=== PATIENT | male | born 1955 | race Caucasian/White ===

== ENCOUNTER 2021-01-08 00:42 | Inpatient (IN) ==
[2021-01-08] MEDS ORDERED: CLINDAMYCIN INJ 600 MG/50 ML PREMIX IV STA (00:58)
[2021-01-08] MEDS ORDERED: DEXTROSE 50% 25 GM/50 ML SYRINGE IV STA (00:58)
[2021-01-08] MEDS ORDERED: DIPH/TET/ACEL PERT BOOSTER VACCINE 0.5 ML VIAL IM ONE (00:58)
[2021-01-08] MEDS ORDERED: SODIUM CHLORIDE 0.9% 500 ML IV STA (00:58)
[2021-01-08 01:14] LABS: Basophils % 0.1 % (0.0-0.8); Hematocrit 42.3 VOL% (42.0-52.0); Hemoglobin 14.5 GM/DL (14.0-18.0); Immature Granulocytes % 0.8 %; Immature Granulocytes Absolute 0.21 #; Lymphocytes # 0.9 10*3/uL (1.4-4.0); Lymphocytes % 3.4 % (21.2-54.2); Mean Corpuscular HGB Conc 34.3 GM/DL (32-36); Mean Corpuscular Volume 84.8 FL (87-102); Mean Platelet Volume 10.3 FL (9.6-12.0); Monocytes % 7.8 % (1.7-12.7); Neutrophils % 87.9 % (38.7-73.9); Platelet Count 311 T/CUMM (130-400); Red Blood Count 4.99 MC/CUMM (3.8-5.5); Red Cell Distribution Width 14.3 % (9.3-17.3); White Blood Count 27.6 T/CUMM (4-12)
[2021-01-08] MEDS ORDERED: PANTOPRAZOLE 40 MG VIAL IV STA (01:21)
[2021-01-08 01:38] LABS: Acetaminophen < 2.0 UG/ML (10-30); Salicylate < 2.8 MG/DL (2.8-20)
[2021-01-08 01:47] LABS: Lactic Acid 2.8 MMOL/L (0.4-2.0)
[2021-01-08] MEDS ORDERED: SODIUM CHLORIDE 0.9% 1,000 ML IV STA (01:48)
[2021-01-08 01:57] LABS: Band Neutrophils 1 % (0-10); Lymphocytes 4 % (20-55); Segmented Neutrophils 88 % (50-85); Total Cells Counted 100
[2021-01-08 01:58] LABS: Platelet Estimate Normal; Reactive Lymphocytes Few
[2021-01-08 02:01] LABS: Alanine Aminotransferase 72 U/L (16-61); Alkaline Phosphatase 52 U/L (45-117); Aspartate Amino Transferase 199 U/L (0-37); Blood Urea Nitrogen 92 MG/DL (7-18); CKMB % 0.4 %; Calcium 8.5 MG/DL (8.5-10.1); Carbon Dioxide 17 MMOL/L (21-32); Estimated Glom Filtration Rate 10 ML/MIN; Glucose 161 MG/DL (74-106); Osmolality,Calculated 311.3 MOS/KG (273-304); Potassium 3.1 MMOL/L (3.5-5.1); Sodium 141 MMOL/L (136-145); Total Protein 6.7 G/DL (6.4-8.2)
[2021-01-08 02:02] LABS: ABG Base Excess -8.1 MMOL/L (-2.5-2.5); ABG HCO3 18.1 MMOL/L (20-26); ABG Oxygen Saturation 99.6 % (95-100); ABG PCO2 36.8 MM HG (35-48); ABG PH 7.295 (7.35-7.45); ABG TCO2 15.6 MMOL/L (23-27)
[2021-01-08] MEDS ORDERED: hydrALAZINE 20 MG/1 ML VIAL ONE (02:12)
[2021-01-08] MEDS ORDERED: ETOMIDATE 20 MG/10 ML VIAL IV ONE (02:34)
[2021-01-08] MEDS ORDERED: VECURONIUM 10 MG VIAL IV ONE (02:35)
[2021-01-08 02:52] LABS: Bilirubin,Urine Negative (Negative); Blood, Urine Large mg/dL (Negative); Glucose,Urine (UA) Negative (Negative); Granular Casts,Urine 4 /LPF (0-1); Hyaline Casts,Urine 7 /LPF (0-3); Ketones,Urine Negative (Negative); Mucus,Urine Occasional /LPF (Occasional); Nitrite,Urine Negative (Negative); Protein,Urine 100 MG/DL; RBC,Urine 16 /HPF (0-4); Squamous Epithelial Cell,Urine Occasional /HPF (0-10); Urine Appearance Slightly Hazy (Clear); Urine Color Amber (Yellow); Urine Specific Gravity 1.016 (1.001-1.035); Urine Urobilinogen < 2.0 EU/DL (0.2-1.0)
[2021-01-08 02:57] LABS: Barbiturates Screen,Urine Negative (Negative); Benzodiazepines Screen,Urine Negative (Negative); Cannabinoid Screen,Urine Negative (Negative); Opiate Screen,Urine Negative (Negative); Phencyclidine Screen,Urine Negative (Negative)
[2021-01-08] MEDS ORDERED: MIDAZOLAM 10 MG/2 ML VIAL ONE (03:08)
[2021-01-08] MEDS ORDERED: SODIUM CHLORIDE 0.9% 2,000 ML IV ONE (03:25)
[2021-01-08] MEDS ORDERED: ALBUTEROL 2.5 MG/3 ML NEB RESP TX PRN (03:28)
[2021-01-08] MEDS ORDERED: ONDANSETRON 4 MG/2 ML VIAL IV PRN (03:30)
[2021-01-08] MEDS ORDERED: POTASSIUM CHLORIDE RIDER 10 MEQ/100 ML PREMIX IV PRN (04:03)
[2021-01-08] MEDS ORDERED: MAGNESIUM SULF RIDER 4 GM/100 ML PREMIX IV PRN (04:03)
[2021-01-08] MEDS ORDERED: MAGNESIUM SULF RIDER 2 GM/50 ML PREMIX IV PRN (04:03)
[2021-01-08] MEDS: MORPHINE 2 MG/1 ML SYRINGE IV PRN (05:13)
[2021-01-08] MEDS: POTASSIUM CHLORIDE RIDER 20 MEQ/100 ML PREMIX IV PRN ×2 (05:30→06:05)
[2021-01-08] MEDS ORDERED: INFLUENZA VIRUS VACCINE 0.5 ML SYRINGE IM ONE (05:38)
[2021-01-08 05:43] LABS: Basophils % 0.1 % (0.0-0.8); Hemoglobin 12.2 GM/DL (14.0-18.0); Immature Granulocytes % 0.7 %; Lymphocytes # 0.9 10*3/uL (1.4-4.0); Lymphocytes % 3.4 % (21.2-54.2); Mean Corpuscular HGB Conc 34.9 GM/DL (32-36); Mean Corpuscular Volume 85.2 FL (87-102); Mean Platelet Volume 10.3 FL (9.6-12.0); Monocytes % 8.3 % (1.7-12.7); Neutrophils % 87.5 % (38.7-73.9); Platelet Count 256 T/CUMM (130-400); Red Blood Count 4.11 MC/CUMM (3.8-5.5); Red Cell Distribution Width 14.4 % (9.3-17.3); White Blood Count 27.3 T/CUMM (4-12)
[2021-01-08] MEDS ORDERED: MIDAZOLAM 100 MG in SODIUM CHLORIDE 0.9% 80 ML IV PRN (05:45)
[2021-01-08 05:52] LABS: ABG Base Excess -9.3 MMOL/L (-2.5-2.5); ABG HCO3 17.1 MMOL/L (20-26); ABG Oxygen Saturation 99.5 % (95-100); ABG PCO2 26.1 MM HG (35-48); ABG PH 7.361 (7.35-7.45); ABG TCO2 13.1 MMOL/L (23-27)
[2021-01-08] MEDS ORDERED: SODIUM CHLORIDE 0.9% 1,000 ML IV SCH (06:00)
[2021-01-08 06:08] LABS: Band Neutrophils 1 % (0-10); Hypochromasia Slight; Lymphocytes 1 % (20-55); Microcytosis 1+; Segmented Neutrophils 88 % (50-85); Total Cells Counted 100
[2021-01-08 06:09] LABS: Platelet Estimate Normal
[2021-01-08 06:27] LABS: Albumin 2.5 G/DL (3.4-5.0); Bilirubin,Total 1.4 MG/DL (0.20-1.00); Calcium 7.2 MG/DL (8.5-10.1); Osmolality,Calculated 315.8 MOS/KG (273-304); Thyroid Stimulating Hormone 0.086 uIU/ml (0.358-3.74); Total Protein 5.2 G/DL (6.4-8.2)
[2021-01-08] MEDS ORDERED: SODIUM BICARB INJ 100 MEQ in DEXTROSE 5% 1,000 ML IV SCH (07:00)
[2021-01-08] MEDS: PANTOPRAZOLE 40 MG VIAL IV SCH ×2 (09:05→21:02)
[2021-01-08] MEDS: cefTRIAXone 1,000 MG in SODIUM CHLORIDE 0.9% 100 ML IV SCH (09:05)
[2021-01-08] MEDS ORDERED: SODIUM BICARBONATE 50 MEQ/50 ML VIAL IV ONE (10:52)
[2021-01-08] MEDS ORDERED: SODIUM BICARB INJ 150 MEQ in DEXTROSE 5% 1,000 ML IV SCH (11:00)
[2021-01-08 12:05] LABS: Hematocrit 34.9 VOL% (42.0-52.0); Hemoglobin 11.9 GM/DL (14.0-18.0)
[2021-01-08 12:27] LABS: Calcium 7.2 MG/DL (8.5-10.1); Osmolality,Calculated 313.1 MOS/KG (273-304); Potassium 4.2 MMOL/L (3.5-5.1)
[2021-01-08] MEDS ORDERED: DEXTROSE 50% 25 GM/50 ML VIAL IV PRN (13:18)
[2021-01-08] MEDS ORDERED: GLUCAGON 1 MG VIAL IM PRN (13:18)
[2021-01-08] MEDS: INSULIN REGULAR 100 UNIT/ML SUBCUT SCH (17:54)
[2021-01-09] MEDS: INSULIN REGULAR 100 UNIT/ML SUBCUT SCH ×3 (00:09→11:28)
[2021-01-09] MEDS: SODIUM BICARB INJ 150 MEQ in DEXTROSE 5% 1,000 ML IV SCH ×2 (00:26→16:19)
[2021-01-09] MEDS: MORPHINE 2 MG/1 ML SYRINGE IV PRN ×2 (02:02→08:37)
[2021-01-09] MEDS ORDERED: SODIUM CHLORIDE 0.9% 250 ML IV ONE ×2 (03:56→05:08)
[2021-01-09 04:12] LABS: Basophils % 0.1 % (0.0-0.8); Hematocrit 32.7 VOL% (42.0-52.0); Hemoglobin 10.9 GM/DL (14.0-18.0); Immature Granulocytes % 0.5 %; Immature Granulocytes Absolute 0.09 #; Lymphocytes # 1.2 10*3/uL (1.4-4.0); Lymphocytes % 6.7 % (21.2-54.2); Mean Corpuscular HGB Conc 33.3 GM/DL (32-36); Mean Corpuscular Volume 85.8 FL (87-102); Mean Platelet Volume 10.5 FL (9.6-12.0); Monocytes % 8.2 % (1.7-12.7); Neutrophils % 84.5 % (38.7-73.9); Platelet Count 238 T/CUMM (130-400); Red Blood Count 3.81 MC/CUMM (3.8-5.5); Red Cell Distribution Width 14.5 % (9.3-17.3)
[2021-01-09 04:16] LABS: ABG Base Excess 0.6 MMOL/L (-2.5-2.5); ABG HCO3 22.6 MMOL/L (20-26); ABG Oxygen Saturation 98.3 % (95-100); ABG PCO2 28.5 MM HG (35-48); ABG PH 7.518 (7.35-7.45); ABG PO2 147.5 MM HG (80-95); ABG TCO2 23.5 MMOL/L (23-27)
[2021-01-09 04:32] LABS: Alanine Aminotransferase 63 U/L (16-61); Albumin 2.4 G/DL (3.4-5.0); Alkaline Phosphatase 50 U/L (45-117); Aspartate Amino Transferase 139 U/L (0-37); Bilirubin,Total < 0.39 MG/DL (0.20-1.00); Blood Urea Nitrogen 94 MG/DL (7-18); Calcium 7.2 MG/DL (8.5-10.1); Carbon Dioxide 25 MMOL/L (21-32); Estimated Glom Filtration Rate 11 ML/MIN; Glucose 157 MG/DL (74-106); Osmolality,Calculated 317.8 MOS/KG (273-304); Potassium 3.6 MMOL/L (3.5-5.1); Sodium 144 MMOL/L (136-145); Total Protein 5.4 G/DL (6.4-8.2)
[2021-01-09] MEDS ORDERED: hydrALAZINE 20 MG/1 ML VIAL ONE (08:24)
[2021-01-09] MEDS: cefTRIAXone 1,000 MG in SODIUM CHLORIDE 0.9% 100 ML IV SCH (08:30)
[2021-01-09] MEDS: PANTOPRAZOLE 40 MG VIAL IV SCH ×2 (08:30→21:03)
[2021-01-09] MEDS: hydrALAZINE 20 MG/1 ML VIAL IV PRN ×2 (08:31→16:15)
[2021-01-09] MEDS ORDERED: PANTOPRAZOLE 40 MG VIAL IV SCH (09:00)
[2021-01-09 09:41] LABS: Allen Test Positive; Pt O2 Delivery Device Ventilator
[2021-01-09 09:42] LABS: ABG Base Excess 2.5 MMOL/L (-2.5-2.5); ABG HCO3 26.6 MMOL/L (20-26); ABG Oxygen Saturation 99.4 % (95-100); ABG PCO2 32.8 MM HG (35-48); ABG PH 7.494 (7.35-7.45); ABG TCO2 22.4 MMOL/L (23-27)
[2021-01-09] MEDS ORDERED: VANCOMYCIN INJ 1,250 MG in SODIUM CHLORIDE 0.9% 250 ML IV ONE (11:00)
[2021-01-09] MEDS ORDERED: VANCOMYCIN INJ 1,250 MG in SODIUM CHLORIDE 0.9% 250 ML IV PRN (11:01)
[2021-01-09] MEDS ORDERED: amLODIPine 5 MG TABLET PO ONE (14:02)
[2021-01-10 04:51] LABS: Basophils % 0.1 % (0.0-0.8); Eosinophils # 0.1 10*3/uL (0.0-0.87); Eosinophils % 0.7 % (0.00-10.9); Hematocrit 31.8 VOL% (42.0-52.0); Hemoglobin 10.6 GM/DL (14.0-18.0); Immature Granulocytes % 0.7 %; Immature Granulocytes Absolute 0.08 #; Lymphocytes # 1.5 10*3/uL (1.4-4.0); Lymphocytes % 12.4 % (21.2-54.2); Mean Corpuscular HGB Conc 33.3 GM/DL (32-36); Mean Corpuscular Volume 87.6 FL (87-102); Monocytes % 7.4 % (1.7-12.7); Neutrophils % 78.7 % (38.7-73.9); Platelet Count 224 T/CUMM (130-400); Red Blood Count 3.63 MC/CUMM (3.8-5.5); Red Cell Distribution Width 14.6 % (9.3-17.3); White Blood Count 11.9 T/CUMM (4-12)
[2021-01-10] MEDS: hydrALAZINE 20 MG/1 ML VIAL IV PRN ×2 (05:08→13:13)
[2021-01-10 05:18] LABS: Albumin 2.6 G/DL (3.4-5.0); Bilirubin,Total 1.4 MG/DL (0.20-1.00); Osmolality,Calculated 300.1 MOS/KG (273-304); Potassium 3.2 MMOL/L (3.5-5.1); Total Protein 5.6 G/DL (6.4-8.2)
[2021-01-10] MEDS: SODIUM BICARB INJ 150 MEQ in DEXTROSE 5% 1,000 ML IV SCH ×2 (07:15→07:47)
[2021-01-10] MEDS: POTASSIUM CHLORIDE RIDER 20 MEQ/100 ML PREMIX IV PRN (07:49)
[2021-01-10] MEDS: PANTOPRAZOLE 40 MG VIAL IV SCH ×2 (08:10→22:10)
[2021-01-10] MEDS: cefTRIAXone 1,000 MG in SODIUM CHLORIDE 0.9% 100 ML IV SCH (08:16)
[2021-01-10] MEDS ORDERED: amLODIPine 10 MG TABLET PO ONE (09:29)
[2021-01-10] MEDS: SODIUM CHLORIDE 0.9% 1,000 ML IV SCH ×2 (09:38→19:00)
[2021-01-10] MEDS: methylPREDNISolone SOD SUC 40 MG/1 ML VIAL IV SCH ×2 (09:53→17:17)
[2021-01-10] MEDS: MORPHINE 2 MG/1 ML SYRINGE IV PRN (22:09)
[2021-01-11] MEDS: SODIUM CHLORIDE 0.9% 1,000 ML IV SCH ×3 (01:43→17:31)
[2021-01-11] MEDS: methylPREDNISolone SOD SUC 40 MG/1 ML VIAL IV SCH ×3 (02:40→17:31)
[2021-01-11 06:08] LABS: Basophils % 0.1 % (0.0-0.8); Hematocrit 33.3 VOL% (42.0-52.0); Hemoglobin 11.1 GM/DL (14.0-18.0); Immature Granulocytes % 0.9 %; Immature Granulocytes Absolute 0.11 #; Lymphocytes # 0.3 10*3/uL (1.4-4.0); Lymphocytes % 2.7 % (21.2-54.2); Mean Corpuscular HGB Conc 33.3 GM/DL (32-36); Mean Corpuscular Volume 86.9 FL (87-102); Mean Platelet Volume 10.7 FL (9.6-12.0); Monocytes % 2.4 % (1.7-12.7); Neutrophils % 93.9 % (38.7-73.9); Platelet Count 245 T/CUMM (130-400); Red Blood Count 3.83 MC/CUMM (3.8-5.5); Red Cell Distribution Width 14.4 % (9.3-17.3); White Blood Count 12.3 T/CUMM (4-12)
[2021-01-11 06:23] LABS: Albumin 2.8 G/DL (3.4-5.0); Bilirubin,Total 0.9 MG/DL (0.20-1.00); Calcium 8.4 MG/DL (8.5-10.1); Osmolality,Calculated 294.1 MOS/KG (273-304); Total Protein 6.3 G/DL (6.4-8.2)
[2021-01-11 06:52] LABS: Band Neutrophils 7 % (0-10); Lymphocytes 6 % (20-55); Segmented Neutrophils 83 % (50-85); Total Cells Counted 100
[2021-01-11 06:53] LABS: Anisocytosis 1+; Platelet Estimate Normal
[2021-01-11] MEDS: amLODIPine 10 MG TABLET PO SCH (08:33)
[2021-01-11] MEDS: PANTOPRAZOLE 40 MG VIAL IV SCH ×2 (08:34→21:10)
[2021-01-11] MEDS: cefTRIAXone 1,000 MG in SODIUM CHLORIDE 0.9% 100 ML IV SCH (08:35)
[2021-01-11] MEDS ORDERED: VANCOMYCIN INJ 1,250 MG in SODIUM CHLORIDE 0.9% 250 ML IV ONE (17:00)
[2021-01-11] MEDS: ZALEPLON 5 MG CAPSULE PO PRN (21:10)
[2021-01-12] MEDS: methylPREDNISolone SOD SUC 40 MG/1 ML VIAL IV SCH ×2 (01:25→09:24)
[2021-01-12] MEDS: SODIUM CHLORIDE 0.9% 1,000 ML IV SCH ×4 (04:26→21:05)
[2021-01-12] MEDS: PANTOPRAZOLE 40 MG VIAL IV SCH ×2 (09:25→21:06)
[2021-01-12] MEDS: amLODIPine 10 MG TABLET PO SCH (09:25)
[2021-01-12] MEDS: cefTRIAXone 1,000 MG in SODIUM CHLORIDE 0.9% 100 ML IV SCH (09:26)
[2021-01-12 10:44] LABS: Basophils % 0.1 % (0.0-0.8); Hematocrit 33.9 VOL% (42.0-52.0); Hemoglobin 11.1 GM/DL (14.0-18.0); Immature Granulocytes % 0.9 %; Immature Granulocytes Absolute 0.18 #; Lymphocytes # 0.5 10*3/uL (1.4-4.0); Lymphocytes % 2.4 % (21.2-54.2); Mean Corpuscular HGB Conc 32.7 GM/DL (32-36); Mean Corpuscular Volume 86.9 FL (87-102); Mean Platelet Volume 9.6 FL (9.6-12.0); Monocytes % 2.5 % (1.7-12.7); Neutrophils % 94.1 % (38.7-73.9); Platelet Count 294 T/CUMM (130-400); Red Cell Distribution Width 14.2 % (9.3-17.3); White Blood Count 19.4 T/CUMM (4-12)
[2021-01-12 11:10] LABS: Lymphocytes 3 % (20-55); Platelet Estimate Normal; Segmented Neutrophils 95 % (50-85); Total Cells Counted 100
[2021-01-12 11:11] LABS: Anisocytosis Slight; Macrocytosis Slight
[2021-01-12 11:14] LABS: Calcium 8.3 MG/DL (8.5-10.1); Potassium 4.1 MMOL/L (3.5-5.1)
[2021-01-12] MEDS: ENOXAPARIN 40 MG/0.4 ML SYRINGE SUBCUT SCH (12:33)
[2021-01-12] MEDS ORDERED: VANCOMYCIN INJ 1,250 MG in SODIUM CHLORIDE 0.9% 250 ML IV ONE (18:30)
[2021-01-12] MEDS: ZALEPLON 5 MG CAPSULE PO PRN (21:10)
[2021-01-13] MEDS: SODIUM CHLORIDE 0.9% 1,000 ML IV SCH ×2 (03:20→13:07)
[2021-01-13 05:57] LABS: Basophils % 0.2 % (0.0-0.8); Eosinophils # 0.1 10*3/uL (0.0-0.87); Eosinophils % 0.3 % (0.00-10.9); Hematocrit 32.9 VOL% (42.0-52.0); Hemoglobin 11.1 GM/DL (14.0-18.0); Immature Granulocytes % 1.4 %; Immature Granulocytes Absolute 0.25 #; Lymphocytes # 1.6 10*3/uL (1.4-4.0); Lymphocytes % 9.2 % (21.2-54.2); Mean Corpuscular HGB Conc 33.7 GM/DL (32-36); Mean Platelet Volume 9.8 FL (9.6-12.0); Monocytes % 9.4 % (1.7-12.7); Neutrophils % 79.5 % (38.7-73.9); Platelet Count 316 T/CUMM (130-400); Red Blood Count 3.78 MC/CUMM (3.8-5.5); White Blood Count 17.8 T/CUMM (4-12)
[2021-01-13] MEDS: hydrALAZINE 20 MG/1 ML VIAL IV PRN (06:07)
[2021-01-13 06:30] LABS: Calcium 8.1 MG/DL (8.5-10.1); Osmolality,Calculated 282.5 MOS/KG (273-304); Potassium 3.4 MMOL/L (3.5-5.1)
[2021-01-13] MEDS: PANTOPRAZOLE 40 MG VIAL IV SCH ×2 (09:31→22:21)
[2021-01-13] MEDS: cefTRIAXone 1,000 MG in SODIUM CHLORIDE 0.9% 100 ML IV SCH (09:32)
[2021-01-13] MEDS: amLODIPine 10 MG TABLET PO SCH (09:33)
[2021-01-13] MEDS: MORPHINE 2 MG/1 ML SYRINGE IV PRN ×2 (13:07→22:29)
[2021-01-13] MEDS: ENOXAPARIN 40 MG/0.4 ML SYRINGE SUBCUT SCH (13:08)
[2021-01-13] MEDS: VANCOMYCIN INJ 1,000 MG in SODIUM CHLORIDE 0.9% 250 ML IV SCH (15:40)
[2021-01-13] MEDS: ZALEPLON 5 MG CAPSULE PO PRN (22:29)
[2021-01-14] MEDS: VANCOMYCIN INJ 1,000 MG in SODIUM CHLORIDE 0.9% 250 ML IV SCH (03:34)
[2021-01-14 08:44] LABS: Basophils % 0.1 % (0.0-0.8); Eosinophils # 0.2 10*3/uL (0.0-0.87); Eosinophils % 1.5 % (0.00-10.9); Hematocrit 27.9 VOL% (42.0-52.0); Hemoglobin 9.2 GM/DL (14.0-18.0); Immature Granulocytes % 1.4 %; Immature Granulocytes Absolute 0.21 #; Lymphocytes # 1.8 10*3/uL (1.4-4.0); Lymphocytes % 12.1 % (21.2-54.2); Mean Corpuscular Volume 88.6 FL (87-102); Mean Platelet Volume 9.5 FL (9.6-12.0); Neutrophils % 75.9 % (38.7-73.9); Platelet Count 303 T/CUMM (130-400); Red Blood Count 3.15 MC/CUMM (3.8-5.5)
[2021-01-14 08:55] LABS: Calcium 8.3 MG/DL (8.5-10.1); Potassium 4.2 MMOL/L (3.5-5.1)
[2021-01-14] MEDS ORDERED: ASPIRIN EC 81 MG TABLET PO SCH (09:00)
[2021-01-14] MEDS: amLODIPine 10 MG TABLET PO SCH (09:13)
[2021-01-14] MEDS: PANTOPRAZOLE 40 MG VIAL IV SCH (09:13)
[2021-01-14] MEDS: cefTRIAXone 1,000 MG in SODIUM CHLORIDE 0.9% 100 ML IV SCH (09:14)
[2021-01-14] MEDS: MORPHINE 2 MG/1 ML SYRINGE IV PRN (09:23)
[2021-01-14 12:09] VITALS: BP 143/63
[2021-01-14] MEDS: ENOXAPARIN 40 MG/0.4 ML SYRINGE SUBCUT SCH (12:48)
[2021-01-14] MEDS ORDERED: PANTOPRAZOLE 40 MG TABLET PO SCH (16:30)
== END 2021-01-14 14:31 | disposition home or self-care (01) | DRG 871 ==
LOC: EDBD → EDUNIT# → N.ED 00:42 → SUATTDRO 02:20 → N.EDINP 02:20 → N.CC 03:28 → N.3E 01-10 16:16
PROVIDERS: ADMIT Family Medicine; ATTEND Internal Medicine